=== PATIENT | female | born 1960 | race Caucasian/White ===

== ENCOUNTER → 2017-07-19 | Emergency (ER) | payer OTHER ==
[~2017-07-19] VITALS: Ht 167.6 cm; Wt 85.7 kg
[~2017-07-19] MED LIST: ADVAIR 100-501 EACH; CLONAZEPAM1 MG; HYZAAR 50/12.51 TAB; PLAVIX75 MG PO; PROTONIX20 MG; SINGULAIR4 MG; WELLBUTRIN XL150 M1
== END | disposition home or self-care (01) ==
LOC: ER 10:57
DX: S00.83XA Contusion of other part of head, initial encounter (principal); S30.0XXA Contusion of lower back and pelvis, initial encounter; S80.01XA Contusion of right knee, initial encounter; W18.39XA Other fall on same level, initial encounter; Y93.89 Activity, other specified; Y92.512 Supermarket, store or market as the place of occurrence of the external cause; Y99.8 Other external cause status